=== PATIENT | female | born 1960 | race Caucasian/White ===

== ENCOUNTER 2020-10-08 23:45 | Inpatient (IN) | payer MEDICAID, OTHER ==
[~2020-10-08] VITALS: Ht 160 cm; Wt 112.9 kg
[2020-10-09] MEDS ORDERED: KETOROLAC 30MG/ML VIAL IV STA (00:16)
[2020-10-09] MEDS: ASPIRIN 81MG TABLET PO ONE ×2 (00:30→01:34)
[2020-10-09 01:24] LABS: BASOPHILS % 0.4 % (0.0-2.0); EOSINOPHILS % 2.7 % (0.0-5.0); HEMATOCRIT. 42.1 % (36.0-48.0); HEMOGLOBIN. 13.9 g/dL (12.0-16.0); LYMPHOCYTES % 26.1 % (20.0-50.0); MEAN CORPUSCULAR HEMOGLOBIN 28.9 pg (28.0-32.0); MEAN CORPUSCULAR VOLUME 87.6 fL (81.0-99.0); MEAN PLATELET VOLUME 7.5 fl (7.4-10.4); MONOCYTES % 14.1 % (2.0-8.0); NEUTROPHILS % 56.7 % (40.0-76.0); PLATELET 121 x1000/uL (130-400); RED CELL DISTRIBUTION WIDTH 17.5 % (11.6-14.6)
[2020-10-09 01:28] LABS: CHLORIDE 108 mEq/L (98-107)
[2020-10-09] MEDS ORDERED: ACETAMINOPHEN 325MG TABLET PO ONE (02:00)
[2020-10-09] MEDS ORDERED: DICYCLOMINE 10 MG/5 ML ORAL SYR PO STA (03:34)
[2020-10-09] MEDS ORDERED: MAGNESIUM/ALUMINUM HYDROXIDE/SIMETHICONE 30ML UDC PO STA (03:34)
[2020-10-09 09:00] VITALS: BP 108/71
[2020-10-09 09:02] VITALS: BP 108/71
[2020-10-09] MEDS ORDERED: LORAZEPAM 0.5MG TABLET PO PRN (09:30)
[2020-10-09] MEDS ORDERED: ONDANSETRON HCL 4MG/2ML INJ IV PRN (09:30)
[2020-10-09] MEDS ORDERED: HYDROCODONE/ACETAMINOPHEN 5/325MG TABLET PO PRN (09:30)
[2020-10-09] MEDS ORDERED: ENOXAPARIN 40MG/0.4ML SYR SUBCUT SCH (09:30)
[2020-10-09] MEDS: LEVETIRACETAM 500MG/5ML CUP PO SCH ×2 (11:09→21:29)
[2020-10-09] MEDS: PANTOPRAZOLE 40MG DR TABLET PO SCH ×2 (11:09→21:29)
[2020-10-09] MEDS: ENOXAPARIN 30MG/0.3ML SYR SUBCUT SCH ×2 (11:11→21:30)
[2020-10-09 12:00] VITALS: BP 111/75
[2020-10-09 16:00] VITALS: BP 117/58
[2020-10-09 20:00] VITALS: BP 94/57
[2020-10-10] VITALS: BP 96/62
[2020-10-10 04:00] VITALS: BP_SYST 105
[2020-10-10] MEDS: PANTOPRAZOLE 40MG DR TABLET PO SCH ×2 (05:52→20:37)
[2020-10-10] MEDS ORDERED: TOPUD MT (07:59)
[2020-10-10] MEDS ORDERED: [UNRECOGNIZED DRUG - CODE] PO (07:59)
[2020-10-10] MEDS ORDERED: ATOR40TA70 PO (07:59)
[2020-10-10 08:00] VITALS: BP 96/64
[2020-10-10] MEDS ORDERED: DIPH50CA4 PO (08:05)
[2020-10-10] MEDS ORDERED: QUET25TA PO (08:05)
[2020-10-10] MEDS ORDERED: LEVE10006 PO (08:05)
[2020-10-10] MEDS ORDERED: CALC-1042 PO (08:05)
[2020-10-10] MEDS ORDERED: VALP250C3 PO (08:05)
[2020-10-10] MEDS: ENOXAPARIN 30MG/0.3ML SYR SUBCUT SCH ×2 (08:40→20:37)
[2020-10-10] MEDS: LEVETIRACETAM 500MG/5ML CUP PO SCH ×2 (08:40→20:37)
[2020-10-10 12:00] VITALS: BP 109/66
[2020-10-10 16:00] VITALS: BP 99/60
[2020-10-10 20:00] VITALS: BP 96/59
[2020-10-11] VITALS: BP 105/59
[2020-10-11 04:00] VITALS: BP 89/56
[2020-10-11] MEDS: PANTOPRAZOLE 40MG DR TABLET PO SCH (06:02)
[2020-10-11 08:00] VITALS: BP 110/64
[2020-10-11] MEDS: LEVETIRACETAM 500MG/5ML CUP PO SCH ×2 (09:01→20:22)
[2020-10-11] MEDS: ENOXAPARIN 30MG/0.3ML SYR SUBCUT SCH ×2 (09:02→20:23)
[2020-10-11 12:00] VITALS: BP 101/61
[2020-10-11 16:00] VITALS: BP 103/62
[2020-10-11 20:00] VITALS: BP 112/62
[2020-10-11] MEDS: FAMOTIDINE 20MG TABLET PO SCH (20:23)
[2020-10-12] VITALS (9 sets, daily range): BP systolic 99–109; BP diastolic 60–69
[2020-10-12] MEDS: LEVETIRACETAM 500MG/5ML CUP PO SCH (09:00)
[2020-10-12] MEDS: ENOXAPARIN 30MG/0.3ML SYR SUBCUT SCH ×2 (09:00→20:52)
[2020-10-12] MEDS: FAMOTIDINE 20MG TABLET PO SCH ×2 (10:39→21:00)
[2020-10-12] MEDS ORDERED: QUETIAPINE FUMARATE 25MG TABLET PO SCH (21:00)
[2020-10-12] MEDS ORDERED: DIVALPROEX SODIUM 250MG DR TABLET PO SCH (21:00)
[2020-10-13] VITALS: BP 100/60
== END 2020-10-13 02:49 | DRG 251 ==
LOC: ER 23:45 → 5WST 10-09 03:31 → ENRESERV 10-09 07:17
PROVIDERS: ADMIT Ophthalmology; ATTEND Ophthalmology
DX: R10.9 Unspecified abdominal pain (principal); D27.9 Benign neoplasm of unspecified ovary; F41.9 Anxiety disorder, unspecified; E44.1 Mild protein-calorie malnutrition; E66.9 Obesity, unspecified; E87.8 Other disorders of electrolyte and fluid balance, not elsewhere classified; Z20.822 Contact with and (suspected) exposure to COVID-19; G40.909 Epilepsy, unspecified, not intractable, without status epilepticus; Z88.0 Allergy status to penicillin; Z88.8 Allergy status to other drugs, medicaments and biological substances; Z79.899 Other long term (current) drug therapy; Z79.1 Long term (current) use of non-steroidal anti-inflammatories (NSAID); Z68.41 Body mass index [BMI] 40.0-44.9, adult; Z71.89 Other specified counseling
CPT/HCPCS: 36415; 71045; 74176; 76700; 80053; 82962; 83880; 84484; 85025; 87426; 93005; 93306; 97162; 97166; 99285; J1650; J1885